=== PATIENT | female | born 1960 | race Caucasian/White ===

== ENCOUNTER 2017-04-22 12:14 | Observation (INO) ==
[2017-04-22] MEDS ORDERED: Ipratropium/Albuterol Neb 3 ML IH ONE (13:54)
[2017-04-22] MEDS ORDERED: methylPREDNISolone 125 MG/2 ML VIAL IVP ONE (13:54)
--- NOTE | 2017-04-22 14:06 | Emergency Department Note ---
Disposition Clinical Impression: Diverticulitis, Bronchitis, Diarrhea Disposition: Admitted As Inpatient Condition: Good Referrals: Mari Zamora MD [Primary Care Provider] - Forms: ED Satisfaction Letter Time of Disposition: 16:09 General Adult HPI - General Chief complaint: ED Shortness of Breath/Dyspnea Stated complaint: TRICIA, bronchitis Time Seen by Provider: 04/22/17 12:51 Source: patient Limitations: no limitations Nursing Notes Reviewed: Yes Vital Signs Reviewed: Yes - History of Present Illness HPI Narrative: 56 yo f here for bronchitis type sx for the past 3-4 weeks. Has been on two rounds of antibiotics with no improvement. she feels short of breath all the time and is still coughing. no actual chest pain. she is a known smoker and smokes daily. she has been using her albuterol INH. Now she states for the past week she has developed persistent crampy abdominal pain with lots of diarrhea. She denies blood in her stool. No blackness to her stool. No other complaints other than this crampy abdominal pain has been present with the diarrhea. She has no history of C. difficile colitis. Pain Scale: 6 - Related Data Home Medications Medication Instructions Recorded Confirmed Ibuprofen [Motrin] 800 mg PO TID 02/21/15 01/19/16 Tizanidine HCl 4 mg PO BID 02/21/15 01/19/16 Cetirizine HCl [Zyrtec] 10 mg PO DAILY 01/19/16 01/19/16 Citalopram Hydrobromide [Celexa] 40 mg PO DAILY 01/19/16 01/19/16 Gabapentin [Neurontin] 600 mg PO TID 01/19/16 01/19/16 Lisinopril [Zestril] 2.5 mg PO QPM 01/19/16 01/19/16 Lisinopril [Zestril] 5 mg PO QAM 01/19/16 01/19/16 Previous Rx's Medication Instructions Recorded Hydrocodone/Acetaminophen [[place] 1 - 2 each PO Q6H PRN #15 tablet 02/04/16 5-325 Tablet] HYDROcodone/Acet 5/325 mg [[place] 1 tab PO Q6H PRN #12 tab 03/18/16 5-325 mg] Meloxicam [Mobic] 7.5 mg PO BID #20 tablet 08/05/16 PredniSONE [Deltasone] 20 mg PO DAILY #12 tablet 08/05/16 Albuterol Sulfate [Albuterol 1 - 2 puff IH Q4H PRN #1 inhaler 08/23/16 Inhaler] Benzonatate [Tessalon] 100 mg PO TID 2 Days capsule 08/23/16 Doxycycline 100 mg PO BID 7 Days capsule 08/23/16 Cyclobenzaprine [Flexeril] 10 mg PO TID #15 tablet 12/03/16 Naproxen [Naprosyn] 500 mg PO BID PRN #20 tablet 12/03/16 Allergies Allergy/AdvReac Type Severity Reaction Status Date / Time Penicillins [PCN] Allergy Rash Verified 12/03/16 10:17 All systems ED: reviewed and negative except as stated. Constitutional: Reports: as per HPI. Denies: fever, chills Eyes: Reports: as per HPI ENT ED: Reports: as per HPI Cardiovascular: Denies: chest pain Respiratory: Reports: cough Gastrointestinal: Reports: abdominal pain, diarrhea Genitourinary: Reports: as per HPI Musculoskeletal: Reports: as per HPI Integumentary: Reports: as per HPI Neurological: Reports: as per HPI Psychiatric: Reports: as per HPI Endocrine: Reports: as per HPI Hematological/Lymphatic: Reports: as per HPI Allergic/Immunologic: Reports: as per HPI Past Medical History - Past Medical History Medical history: Reports: arthritis, COPD, hepatitis, hypertension, other Surgical history: Reports: no surgical history Psychiatric history: Reports: anxiety, depression, PTSD 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 Good air exchange.). Absent: respiratory distress - Cardiovascular Cardiovascular exam: Present: regular rate, normal rhythm - Abdominal Exam Abdominal exam: Present: soft, tenderness (Diffuse tenderness throughout the entire abdomen. No peritoneal signs. Hyperactive bowel sounds.), distention, hyperactive bowel sounds - Extremities Exam Extremities exam: Present: normal inspection - Back Exam Back exam: Present: normal inspection - Neurological Exam Neurological exam: Present: alert, oriented X3 - Psychiatric Psychiatric exam: Present: normal affect, normal mood - Skin Skin exam: Present: warm, dry, intact Course Vital Signs Temperature 97.7 F 04/22/17 12:37 Pulse Rate 72 04/22/17 12:37 Respiratory Rate 18 04/22/17 12:37 Blood Pressure 162/101 04/22/17 12:37 O2 Sat by Pulse Oximetry 99 04/22/17 12:37 Temperature 97.7 F 04/22/17 12:37 Pulse Rate 68 04/22/17 15:25 Respiratory Rate 18 04/22/17 15:25 Blood Pressure 154/84 04/22/17 15:25 O2 Sat by Pulse Oximetry 96 04/22/17 15:25 Oxygen Delivery Oxygen Delivery Room Air Medical Decision Making - MDM Narrative Medical decision making narrative: CT shows evidence of diverticulitis throughout the abdomen. Patient will be admitted and placed on IV antibiotics. No significant lab abnormalities. - Medical Records Medical records reviewed: Yes I reviewed the patient's medical records. - Lab Data Lab results reviewed: Yes I reviewed the patient's lab results. Result diagrams: 04/22/17 14:07 04/22/17 14:07 Lab Results 04/22/17 04/22/17 04/22/17 Range/Units 14:07 14:07 14:07 WBC 5.9 (4.3-11.1) K/mcL RBC 4.35 (3.82-4.97) M/mcL Hgb 12.3 (11.5-15.4) g/dL Hct 37.1 (35.3-44.9) % MCV 85.3 (83.0-100.0) fL MCH 28.3 (28.0-33.3) pg MCHC 33.2 (31.6-35.5) g/dL RDW 13.4 (11.5-14.5) % Plt Count 188 (140-400) K/mcL MPV 10.4 (9.4-12.4) fL Immature Gran % 0.2 (0-4) % Seg Neutrophils % 49.5 % Lymphocytes % 39.3 % Monocytes % 8.3 % Eosinophils % 2.2 % Basophils % 0.5 % Neutrophils # 2.9 (1.6-8.9) K/mcL Lymphocytes # 2.3 (0.6-4.6) K/mcL Monocytes # 0.5 (0.0-1.3) K/mcL Eosinophils # 0.1 (0.0-0.6) K/mcL Basophils # 0.0 (0.0-0.2) K/mcL Sodium 137 (136-145) mEq/L Potassium 3.8 (3.5-5.1) mEq/L Chloride 110 H (98-107) mEq/L Carbon Dioxide 24 (23-29) mEq/L BUN 16 (6-20) mg/dL Creatinine 0.86 (0.60-1.20) mg/dL Est GFR ( Amer) > 60 (> 60) Est GFR (Non-Af Amer) > 60 (> 60) BUN/Creatinine Ratio 19 (6-26) Glucose 132 H (70-105) mg/dL Calculated Osmolality 287 (280-300) Calcium 9.0 (8.6-10.3) mg/dL Total Bilirubin 0.3 (0.3-1.0) mg/dL Direct Bilirubin 0.1 (0.0-0.2) mg/dL Indirect Bilirubin 0.2 (0.0-1.2) mg/dL AST 15 (13-39) Units/L ALT 20 (7-52) Units/L Alkaline Phosphatase 62 (34-104) Units/L Troponin I < 0.03 (< 0.04) ng/mL Serum Total Protein 6.2 L (6.4-8.9) g/dL Albumin 3.7 (3.5-5.7) g/dL Globulin 2.5 (2.4-3.5) g/dL Albumin/Globulin Ratio 1.5 (1.1-2.2) Lipase 49 (11-82) Units/L - Radiology Data Radiology results reviewed: Yes I reviewed the patient's radiology results.
[2017-04-22 14:17] LABS: Basophils % 0.5 %; Eosinophils # 0.1 K/mcL (0.0-0.6); Eosinophils % 2.2 %; Hematocrit 37.1 % (35.3-44.9); Hemoglobin 12.3 g/dL (11.5-15.4); Immature Granulocytes % 0.2 % (0-4); Lymphocytes # 2.3 K/mcL (0.6-4.6); Lymphocytes % 39.3 %; Mean Corpuscular HGB Conc 33.2 g/dL (31.6-35.5); Mean Corpuscular Hemoglobin 28.3 pg (28.0-33.3); Mean Corpuscular Volume 85.3 fL (83.0-100.0); Mean Platelet Volume 10.4 fL (9.4-12.4); Monocytes # 0.5 K/mcL (0.0-1.3); Monocytes % 8.3 %; Neutrophils # 2.9 K/mcL (1.6-8.9); Platelet Count 188 K/mcL (140-400); Red Blood Count 4.35 M/mcL (3.82-4.97); Red Cell Distribution Width 13.4 % (11.5-14.5); Segmented Neutrophils % 49.5 %
[2017-04-22 14:36] LABS: Alanine Aminotransferase 20 Units/L (7-52); Albumin 3.7 g/dL (3.5-5.7); Albumin/Globulin Ratio 1.5 (1.1-2.2); Alkaline Phosphatase 62 Units/L (34-104); Aspartate Amino Transferase 15 Units/L (13-39); BUN/Creatinine Ratio 19 (6-26); Bilirubin,Direct 0.1 mg/dL (0.0-0.2); Bilirubin,Indirect 0.2 mg/dL (0.0-1.2); Bilirubin,Total 0.3 mg/dL (0.3-1.0); Blood Urea Nitrogen 16 mg/dL (6-20); Carbon Dioxide 24 mEq/L (23-29); Chloride 110 mEq/L (98-107); Globulin 2.5 g/dL (2.4-3.5); Glucose 132 mg/dL (70-105); Lipase 49 Units/L (11-82); Osmolality,Calculated 287 (280-300); Potassium 3.8 mEq/L (3.5-5.1); Sodium 137 mEq/L (136-145); Total Protein 6.2 g/dL (6.4-8.9); eGFR For African Americans > 60 (> 60); eGFR For Non-African Americans > 60 (> 60)
[2017-04-22] MEDS ORDERED: MetroNIDAZOLE 500 MG/100 ML 500 MG/100 ML BAG IVPB ONE (16:07)
[2017-04-22] MEDS: Levofloxacin 750 MG/150 ML 750 MG/150 ML BAG IVPB SCH (16:39)
[2017-04-22] MEDS ORDERED: Naloxone 0.4 MG/ML INJ IVP PRN (21:08)
[2017-04-22] MEDS ORDERED: Acetaminophen 325 MG TABLET PO PRN (21:08)
[2017-04-22] MEDS ORDERED: Ipratropium/Albuterol Neb 3 ML IH PRN (21:16)
--- NOTE | 2017-04-22 21:27 | Internal Med History&Physical ---
Date of Encounter: 04/22/17 Time of Encounter: 20:00 Assessment and Plan (1) COPD (chronic obstructive pulmonary disease) Current visit: Yes Status: Acute Patient has COPD. Has one episode of shortness of breath in ER, improved the by steroids and DuoNeb. No wheezing now. - Place patient on DuoNeb as needed. - Oxygen as needed Qualifiers: COPD type: emphysema Emphysema type: unspecified Qualified Code(s): J43.9 - Emphysema, unspecified (2) Hypertension Current visit: Yes Status: Acute Place patient on hydralazine IV when necessary. Resume home medication after receiving diet Qualifiers: Hypertension type: essential hypertension Qualified Code(s): I10 - Essential (primary) hypertension (3) Hepatitis C Current visit: Yes Status: Acute Continue follow-up as outpatient Qualifiers: Viral hepatitis chronicity: chronic Hepatic coma status: without hepatic coma Qualified Code(s): B18.2 - Chronic viral hepatitis C (4) Diverticulitis Current visit: Yes Status: Acute Patient has abdominal pain and watery diarrhea. CT abdomen shows diverticulitis. Patient has a history of diverticulitis previously. - Place patient on nothing by mouth, IV fluid - Continue Levaquin and Flagyl IV - Gradually advance diet as tolerated - We will check a C. difficile to rule out C. difficile colitis (5) DVT prophylaxis Current visit: No Status: Acute Heparin subcutaneously Internal Medicine - H&P: HPI Chief complaint: Abd pain and diarrhea Admitted From: Home Plans for Post Hospital Care: Home History of present illness: Ms. Aguilera is a 56 year old female with past medical history of COPD, hypertension, hep C, arthritis, previous history of diverticulitis, presented to ER for abdominal pain and diarrhea for 3 days. Patient says abdominal pain is located on shantanu-umbilicus area, cramping, 9/10. Patient has watery diarrhea and had about a 15 bowel movements last day. Stool is yellowish, no blood in it. Patient denies fever. Patient has some shortness of breath because of her COPD. Past Med Surg Social Fam HX - Past Medical History Medical history: arthritis, COPD, hepatitis, hypertension, other Psychiatric history: anxiety, depression, PTSD - Past Surgical History Surgical History: no surgical history - Social History Smoking Status: Current every day smoker Packs per day: 0.5 Smokeless Tobacco Status: No Alcohol use: rarely Drug use: marijuana - Family History Sister Living Status: Hx Family Cardiac Disorders: Yes (NM) Hx Family Cancer: Yes (colon cancer) Mother Living Status: Hx Family Cardiac Disorders: Yes (NM, ) Hx Family Cancer: Yes (Colon cancer ) Hx Family Neurologic Disorders: Yes (TIA's) Father Hx Family Cancer: Yes (Colon cancer) Internal Medicine - H&P: Meds Lisinopril [Zestril] 10 mg PO QAM 01/19/16 [History] Albuterol Sulfate [Albuterol Inhaler] 1 - 2 puff IH Q4H PRN #1 inhaler 08/23/16 [Rx] Naproxen [Naprosyn] 500 mg PO BID PRN #20 tablet 12/03/16 [Rx] 3 Allergy/AdvReac Type Severity Reaction Status Date / Time Penicillins [PCN] Allergy Rash Verified 12/03/16 10:17 All Systems PM: A 10-system review of systems was performed and is negative for pertinent findings except as documented above in the HPI. - Constitutional Vitals: Temp Pulse Resp BP Pulse Ox 98.1 F 83 16 163/89 93 04/22/17 20:39 04/22/17 20:39 04/22/17 20:39 04/22/17 20:39 04/22/17 20:39 General appearance: Present: A&O X 3, no acute distress, answers questions appropriately - Head Head exam: Present: atraumatic, normocephalic - Eye Eye exam: Present: PERRL, conjuntiva pink, sclera anicteric Pupils: Present: PERRL - Neck Neck exam general surgery: Present: supple, trachea midline. Absent: lymphadenopathy - Respiratory Respiratory exam: Present: CTAB. Absent: accessory muscle use, rales, rhonchi, wheezes - Cardiovascular Cardiovascular exam: Present: RRR, +S1, +S2. Absent: diastolic murmur, gallop, rubs, systolic murmur - GI/Abdominal GI/Abdominal exam: Present: normal bowel sounds, soft, tenderness (On the left lower quardrant, no rebound or guarding), no peritoneal signs. Absent: distended - Extremities Exam Extremities exam: Present: warm, radial pulses palpable and symmetrical. Absent : calf tenderness, cyanotic, pedal edema - Neurological Exam Neurological exam: Present: CN II-XII intact, oriented X3, no focal deficits. Absent: pronater drift, facial droop, speech deficit - Skin Skin exam: Present: dry, intact Internal Med - H&P Results - Labs CBC & Chem 7: 04/22/17 14:07 04/22/17 14:07
[2017-04-22] MEDS: 0.9 % Sodium Chloride 1,000 ML IVC SCH (23:16)
[2017-04-22] MEDS: Nicotine 14 MG PATCH.TD24 TD SCH (23:35)
[2017-04-22] MEDS: MetroNIDAZOLE 500 MG/100 ML 500 MG/100 ML BAG IVPB SCH (23:37)
[2017-04-22] MEDS: Ketorolac 30 MG/ML VIAL IVP PRN (23:38)
[2017-04-23 05:33] LABS: Hematocrit 37.8 % (35.3-44.9); Hemoglobin 12.7 g/dL (11.5-15.4); Immature Granulocytes % 0.5 % (0-4); Lymphocytes # 0.8 K/mcL (0.6-4.6); Lymphocytes % 10.3 %; Mean Corpuscular HGB Conc 33.6 g/dL (31.6-35.5); Mean Corpuscular Hemoglobin 28.4 pg (28.0-33.3); Mean Corpuscular Volume 84.6 fL (83.0-100.0); Mean Platelet Volume 11.2 fL (9.4-12.4); Monocytes # 0.2 K/mcL (0.0-1.3); Monocytes % 2.1 %; Platelet Count 216 K/mcL (140-400); Red Blood Count 4.47 M/mcL (3.82-4.97); Red Cell Distribution Width 13.2 % (11.5-14.5); Segmented Neutrophils % 87.1 %
[2017-04-23 05:45] LABS: BUN/Creatinine Ratio 21 (6-26); Blood Urea Nitrogen 16 mg/dL (6-20); Calcium 9.5 mg/dL (8.6-10.3); Carbon Dioxide 20 mEq/L (23-29); Chloride 109 mEq/L (98-107); Glucose 136 mg/dL (70-105); Magnesium 1.8 mg/dL (1.6-2.6); Osmolality,Calculated 289 (280-300); Potassium 3.6 mEq/L (3.5-5.1); Sodium 138 mEq/L (136-145); eGFR For African Americans > 60 (> 60); eGFR For Non-African Americans > 60 (> 60)
[2017-04-23] MEDS: *HR* Heparin 5,000 UNIT/ML VIAL SQ SCH ×2 (06:26→17:14)
[2017-04-23] MEDS: Nicotine 14 MG PATCH.TD24 TD SCH (08:23)
[2017-04-23] MEDS: MetroNIDAZOLE 500 MG/100 ML 500 MG/100 ML BAG IVPB SCH ×2 (08:26→15:34)
[2017-04-23] MEDS: Levofloxacin 750 MG/150 ML 750 MG/150 ML BAG IVPB SCH (10:20)
[2017-04-23] MEDS: 0.9 % Sodium Chloride 1,000 ML IVC SCH (11:32)
[2017-04-23] MEDS ORDERED: traZODone 50 MG TABLET PO PRN (12:31)
[2017-04-23] MEDS: tiZANidine 4 MG TABLET PO PRN (15:33)
--- NOTE | 2017-04-23 17:18 | Internal Med Progress Note ---
Date of Encounter: 04/23/17 Time of Encounter: 17:16 - Assessment and plan (1) Diverticulitis Current Visit: Yes Status: Acute Assessment and plan: Improving. Continue IV levaquin. Add IV flagyl 500 mg Q8H. Continue clear liquid diet; advance to regular diet tomorrow if tolerating. Diarrhea resolved , so will cancel C. diff test; can reorder if develops loose stools again. Possible discharge home tomorrow if tolerating diet and abdominal pain controlled. (2) COPD (chronic obstructive pulmonary disease) Current Visit: Yes Status: Chronic Assessment and plan: Respiratory status stable at this time. No further episodes of SOB. Continue duonebs PRN. Continue supplemental O2 PRN. Add robitussin DM 10 ml Q6H PRN cough. Qualifiers: COPD type: emphysema Emphysema type: unspecified Qualified Code(s): J43.9 - Emphysema, unspecified (3) Hypertension Current Visit: Yes Status: Chronic Assessment and plan: Continue home medications. Qualifiers: Hypertension type: essential hypertension Qualified Code(s): I10 - Essential (primary) hypertension (4) Hepatitis C Current Visit: Yes Status: Chronic Assessment and plan: Continue follow up as outpatient. Qualifiers: Viral hepatitis chronicity: chronic Hepatic coma status: without hepatic coma Qualified Code(s): B18.2 - Chronic viral hepatitis C (5) DVT prophylaxis Current Visit: No Status: Acute Assessment and plan: Continue heparin SC. - Time Spent With Patient less than 15 minutes - Subjective Interval history: Patient had no acute events overnight. She states that she is doing better this morning. Abdominal pain is improved. No more nausea or vomiting. She is tolerating clear liquid diet. She states that breathing is good. She has slight cough; wants cough syrup. She denies any chest pain. - Constitutional Vitals: Temp Pulse Resp BP Pulse Ox 97.7 F 75 18 189/91 98 04/23/17 14:49 04/23/17 14:49 04/23/17 16:27 04/23/17 14:49 04/23/17 16:27 General appearance: Present: A&O X 3, no acute distress, answers questions appropriately - Respiratory Respiratory exam: Present: CTAB. Absent: accessory muscle use, rales, rhonchi, wheezes Additional comments: Normal WOB - Cardiovascular Cardiovascular exam: Present: RRR, +S1, +S2. Absent: diastolic murmur, gallop, rubs, systolic murmur Additional comments: No BLE edema - GI/Abdominal GI/Abdominal exam: Present: normal bowel sounds, soft. Absent: distended, hepatomegaly, mass, splenomegaly Additional comments: Mild TTP diffusely across epigastrium - Psychiatric Psychiatric exam: Present: normal affect, normal mood. Absent: anxious, depressed - Skin Skin exam: Present: dry, intact, warm. Absent: cyanosis, rash Internal Medicine: Result - Labs CBC & Chem 7: 04/23/17 03:59 04/23/17 03:59 Labs: Short CBC 04/23/17 Range/Units 03:59 WBC 8.0 (4.3-11.1) K/mcL Hgb 12.7 (11.5-15.4) g/dL Hct 37.8 (35.3-44.9) % Plt Count 216 (140-400) K/mcL Neutrophils # 7.0 (1.6-8.9) K/mcL BMP 04/23/17 03:59 Sodium 138 Potassium 3.6 Chloride 109 H Carbon Dioxide 20 L BUN 16 Creatinine 0.78 Glucose 136 H Calcium 9.5 Consult Discharge Plan - Plan Referrals: Mari Zamora MD [Primary Care Provider] -
[2017-04-23] MEDS: Ketorolac 30 MG/ML VIAL IVP PRN (21:57)
[2017-04-24] MEDS: MetroNIDAZOLE 500 MG/100 ML 500 MG/100 ML BAG IVPB SCH ×2 (00:19→07:12)
[2017-04-24] MEDS: *HR* Heparin 5,000 UNIT/ML VIAL SQ SCH (04:27)
[2017-04-24 06:40] VITALS: BP 155/86
[2017-04-24] MEDS: tiZANidine 4 MG TABLET PO PRN (07:11)
[2017-04-24] MEDS: Nicotine 14 MG PATCH.TD24 TD SCH (07:11)
[2017-04-24 07:13] LABS: BUN/Creatinine Ratio 13 (6-26); Blood Urea Nitrogen 12 mg/dL (6-20); Calcium 9.6 mg/dL (8.6-10.3); Carbon Dioxide 22 mEq/L (23-29); Chloride 109 mEq/L (98-107); Glucose 100 mg/dL (70-105); Osmolality,Calculated 290 (280-300); Potassium 3.3 mEq/L (3.5-5.1); Sodium 140 mEq/L (136-145); eGFR For African Americans > 60 (> 60); eGFR For Non-African Americans > 60 (> 60)
[2017-04-24] MEDS: Levofloxacin 750 MG/150 ML 750 MG/150 ML BAG IVPB SCH (08:14)
--- NOTE | 2017-04-24 11:23 | Discharge Summary ---
- NOTES TO OUTPATIENT PROVIDER Notes to Outpatient Provider: Follow-up with primary care doctor for routine colonoscopy in the next 6-8 weeks. Complete 4 more days of oral antibiotics at home. Date of Encounter: 04/24/17 Time of Encounter: 11:35 - Discharge Diagnosis (1) Diverticulitis Priority: Primary Status: Acute (2) COPD (chronic obstructive pulmonary disease) Priority: Secondary Status: Chronic Qualifiers: COPD type: emphysema Emphysema type: unspecified Qualified Code(s): J43.9 - Emphysema, unspecified (3) DVT prophylaxis Priority: Primary Status: Acute (4) Hepatitis C Priority: Secondary Status: Chronic Qualifiers: Viral hepatitis chronicity: chronic Hepatic coma status: without hepatic coma Qualified Code(s): B18.2 - Chronic viral hepatitis C (5) Hypertension Priority: Secondary Status: Chronic Qualifiers: Hypertension type: essential hypertension Qualified Code(s): I10 - Essential (primary) hypertension Hospital course: Ms. Aguilera is a 56 year old female with chronic hepatitis C, hypertension, tobacco abuse and COPD. She was admitted for management of uncomplicated diverticulitis following: Presentation to the ER for abdominal pain and diarrhea. CAT scan done in the ER showed diverticulitis. The patient was managed with bowel rest, intravenous fluid hydration, and intravenous Levaquin and Flagyl. The patient is to have resolved. Management, and C. difficile was not done as the is no longer. She is seen and examined this morning at the bedside, she is tolerating already have a regular diet, she has no new complaints, she has no fever, she is ambulatory, however labs have been stable. She is stable to be discharged home to complete ciprofloxacin and Flagyl at home for 4 more days. She is educated to follow up with her primary care doctor for routine colonoscopy within 6-8 weeks. She is counseled for 2 minutes on tobacco cessation. She declines a nicotine patch. Discharge discussed with: patient, nurse, social work Time spent discussing smoking cessation with patient: 3 to 10 minutes - Time Spent with Patient Total time spent providing and/or coordinating discharge services: Greater than 30 minutes - Discharge Medications Prescriptions: Ciprofloxacin [Cipro] 500 mg PO BID #8 tablet metroNIDAZOLE [Flagyl] 500 mg PO TID #12 tablet Home Medications: Lisinopril [Zestril] 10 mg PO QAM 01/19/16 [History] Albuterol Sulfate [Albuterol Inhaler] 1 - 2 puff IH Q4H PRN #1 inhaler 08/23/16 [Rx] Naproxen [Naprosyn] 500 mg PO BID PRN #20 tablet 12/03/16 [Rx] Ciprofloxacin [Cipro] 500 mg PO BID #8 tablet 04/24/17 [Rx] metroNIDAZOLE [Flagyl] 500 mg PO TID #12 tablet 04/24/17 [Rx] Allergies/Adverse Reactions: 3 Allergy/AdvReac Type Severity Reaction Status Date / Time Penicillins [PCN] Allergy Rash Verified 12/03/16 10:17 Date of admission: 04/22/17 16:38 Primary care physician: Mari Zamora Consults: 04/23/17 06:28 Consult to Art Supervisor [CONS] Routine Reason for SW Consult: Pt Request 04/23/17 06:29 Consult to Pastoral Services [CONS] Routine Comment: Discharging clinician: Curtis Govea Anticipated date of discharge: 04/24/17 - Constitutional Vitals: Temp Pulse Resp BP Pulse Ox 96.7 F L 85 16 155/86 98 04/24/17 06:37 04/24/17 06:37 04/24/17 08:00 04/24/17 06:37 04/24/17 08:00 General appearance: Present: A&O X 3, no acute distress, answers questions appropriately - Head Head exam: Present: atraumatic, normocephalic - Eye Eye exam: Present: PERRL, conjuntiva pink, sclera anicteric Pupils: Present: PERRL - Neck Neck exam general surgery: Present: supple, trachea midline. Absent: lymphadenopathy - Respiratory Respiratory exam: Present: CTAB. Absent: accessory muscle use, rales, rhonchi, wheezes - Cardiovascular Cardiovascular exam: Present: RRR, +S1, +S2. Absent: diastolic murmur, gallop, rubs, systolic murmur - GI/Abdominal GI/Abdominal exam: Present: normal bowel sounds, soft, no peritoneal signs. Absent: distended, tenderness - Extremities Exam Extremities exam: Present: warm, radial pulses palpable and symmetrical. Absent : calf tenderness, cyanotic, pedal edema - Neurological Exam Neurological exam: Present: alert, CN II-XII intact, oriented X3, no focal deficits. Absent: pronater drift, facial droop, speech deficit - Skin Skin exam: Present: dry, intact - Patient Status Disposition: Home, Self-Care Condition: Good Functional capacity at discharge: independent ambulation Overall status at discharge: patient is back to baseline - Discharge Instructions Follow Up With: Mari Zamora MD [Primary Care Provider] - 05/02/17 1:00 pm - Diet and Activity Activity: resume usual activities as tolerated Diet: low salt diet
--- NOTE | 2017-04-24 18:08 | Electrocardiograph Report ---
[place] [id number] Test Date: 2017-04-22 Pat Name: Neva Aguilera Department: 104 Room: 3A14 Gender: F Expert Medical Writer: ROSA MARIA : 1960 Requested By: John Bonilla Order Number: [id number] Reading MD: Tarah Sorto Measurements Intervals [place] Rate: 70 P: 58 AK: 125 QRS: 40 QRSD: 84 T: 62 QT: 413 QTc: 434 Interpretive Statements SINUS RHYTHM Electronically Signed On 04-24-2017 18:06:30 EST by Tarah Sorto
== END 2017-04-24 11:32 | disposition home or self-care (01) ==
LOC: EMEROO 12:14 → 3ANU 12:14 → SUATTDRO 16:38 → 3ANU 17:00
PROVIDERS: ADMIT Nurse Practitioner Family; ATTEND Internal Medicine